=== PATIENT | male | born 1975 | race African-American/Black ===

== ENCOUNTER 2020-08-26 09:11 | Emergency (ER) | payer SELFPAY | END 2020-08-26 11:28 | disposition home or self-care (01) | LOC: ERS 09:11 | DX: I10 Essential (primary) hypertension (principal); F17.210 Nicotine dependence, cigarettes, uncomplicated; Z79.899 Other long term (current) drug therapy | CPT/HCPCS: 99283 ==

== ENCOUNTER 2022-03-11 17:00 | Emergency (ER) | payer SELFPAY | END 2022-03-11 17:23 | disposition home or self-care (01) | LOC: ERS 17:00 | DX: H66.93 Otitis media, unspecified, bilateral (principal); I10 Essential (primary) hypertension; F17.210 Nicotine dependence, cigarettes, uncomplicated; Z79.899 Other long term (current) drug therapy | CPT/HCPCS: 99283 ==

== ENCOUNTER 2022-11-17 08:20 | Emergency (ER) | payer SELFPAY ==
[2022-11-17] MEDS ORDERED: predniSONE 20 MG TAB ONE (10:33)
[2022-11-17] MEDS ORDERED: Cyclobenzaprine 10 MG TAB ONE (10:33)
[2022-11-17] MEDS ORDERED: Ketorolac Tromethamine 30 MG/ML VIAL ONE (10:33)
== END 2022-11-17 11:21 | disposition home or self-care (01) ==
LOC: ERS 08:20
DX: M54.12 Radiculopathy, cervical region (principal); M62.838 Other muscle spasm; I10 Essential (primary) hypertension; F17.210 Nicotine dependence, cigarettes, uncomplicated
CPT/HCPCS: 96372; 99283; J1885; J7512